=== PATIENT | male | born 1980 | race Caucasian/White ===

== ENCOUNTER → 2018-02-18 09:15 | Outpatient (CLI) | payer OTHER, SELFPAY ==
[2018-02-18 10:36] LABS: Anion Gap 10 (5-15); BUN 9 mg/dL (7-18); BUN/Creat Ratio 9.1 RATIO (10-20); Calcium,Total 8.7 mg/dL (8.5-10.1); Chloride 105 mmol/L (98-107); Cholesterol 186 mg/dL (200); Creatinine, Serum 0.98 mg/dL (0.70-1.30); EST Glomerular Filtration Rate 91 mL/min (>60); Est Glom Filt Rate - Afr Amer 110 mL/min (>60); Glucose 84 mg/dL (74-106); High Density Lipoprotein 55 mg/dL; Potassium 3.7 mmol/L (3.5-5.1); Sodium Level 143 mmol/L (136-145); Triglycerides 118 mg/dL; Very Low Density Lipoprotein 24 mg/dL (5-40)
== END ==
PROVIDERS: Family Provider Family Medicine; PCP Family Medicine; Visit Provider Family Medicine
DX: Z00.00 Encounter for general adult medical examination without abnormal findings (principal)
CPT/HCPCS: 36415; 80048; 80061; 84403

== ENCOUNTER → 2018-03-04 16:53 | Outpatient (CLI) | payer OTHER, SELFPAY ==
[2015-05-15 13:43] VITALS: BMI 27.9
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
== END ==
PROVIDERS: Family Provider Family Medicine; PCP Family Medicine; Referring Provider Family Medicine; Visit Provider Family Medicine
DX: S22.31XA Fracture of one rib, right side, initial encounter for closed fracture (principal); S20.211A Contusion of right front wall of thorax, initial encounter; S20.212A Contusion of left front wall of thorax, initial encounter; W50.0XXA Accidental hit or strike by another person, initial encounter
CPT/HCPCS: 71046; 71100

== ENCOUNTER 2018-06-25 09:41 | Emergency (ER) | payer SELFPAY ==
[2018-06-25 09:42] VITALS: BP 138/82; PULSE 104; RESP 15; TEMP 35.9; BMI 29.5
--- NOTE | 2018-06-25 10:22 | ED.VISSUMM ---
- ER Visit Summary Date of Service: 06/25/18 Chief Complaint: Laceration right ear History of Present Illness: The patient is a 38 M who sustained a right ear laceration with sheet metal last night about 8-1/2 hours ago. Apparently he passed out afterwards. He denies any other injury. Physical Examination: There is a 5 cm laceration with splits the year and 2 on the right ear about shelter between the upper and lower segments of the auricle. Posterior auricular 3 cm laceration is also present. Otherwise normal exam ] Emergency Department Course and Treatment: The anterior part of the auricle was sutured, the posterior segment was loosely approximated and the posterior laceration was also loosely approximated. Tetanus was updated patient will be discharged with suture removal instructions in 5 days. For cosmetic reasons I approximated the [place], because I did this I will placed patient on antibiotics. Discharge stable condition Impression: [Right ear laceration 8 cm] This note was generated with [employer] dictation software. It may contain incorrect words, spelling, and punctuation that were not noted in review of the chart prior to signing ED Disposition - Plan for ED Patient: Disposition: Home or Assisted Living Instructions: ED Laceration All Prescriptions: Clindamycin [Cleocin] 300 mg PO TID #30 cap Referrals: Abel Cruz MD [STAFF PHYSICIAN] - 3-5 Days Additional Instructions: Follow-up with ENT (ear, nose and throat. The cartilage in your ear is not fully approximated, that means it is not fully together. He may need further procedures. If you have any fever chills or EC redness or swelling of the ear return right away. Make sure you take all your antibiotics.
--- NOTE | 2018-06-25 10:27 | ED.DCSUM_ITS ---
- ER Visit Summary Date of Service: 06/25/18 Chief Complaint: Laceration right ear History of Present Illness: The patient is a 38 M who sustained a right ear laceration with sheet metal last night about 8-1/2 hours ago. Apparently he passed out afterwards. He denies any other injury. Physical Examination: There is a 5 cm laceration with splits the year and 2 on the right ear about assisted between the upper and lower segments of the auricle. Posterior auricular 3 cm laceration is also present. Otherwise normal exam ] Emergency Department Course and Treatment: The anterior part of the auricle was sutured, the posterior segment was loosely approximated and the posterior laceration was also loosely approximated. Tetanus was updated patient will be discharged with suture removal instructions in 5 days. For cosmetic reasons I approximated the [place], because I did this I will placed patient on antibiotics. Discharge stable condition Impression: [Right ear laceration 8 cm] This note was generated with [employer] dictation software. It may contain incorrect words, spelling, and punctuation that were not noted in review of the chart prior to signing ED Disposition - Plan for ED Patient: Disposition: Home or Assisted Living Instructions: ED Laceration All Prescriptions: Clindamycin [Cleocin] 300 mg PO TID #30 cap Referrals: Abel Cruz MD [STAFF PHYSICIAN] - 3-5 Days Additional Instructions: Follow-up with ENT (ear, nose and throat. The cartilage in your ear is not fully approximated, that means it is not fully together. He may need further procedures. If you have any fever chills or EC redness or swelling of the ear return right away. Make sure you take all your antibiotics.
[2018-06-25] MEDS: Diphth,Pertuss(Acell),Tet Vac 0.5 ML Vial IM (10:43)
== END 2018-06-25 10:45 | disposition home or self-care (01) ==
PROVIDERS: Emergency Provider Emergency Medicine; Family Provider Family Medicine; PCP Family Medicine
DX: S01.311A Laceration without foreign body of right ear, initial encounter (principal); W26.8XXA Contact with other sharp object(s), not elsewhere classified, initial encounter; Y93.9 Activity, unspecified; Y92.9 Unspecified place or not applicable
CPT/HCPCS: 12015; 90471; 90715; 99282

== ENCOUNTER 2022-11-17 18:50 | Emergency (ER) | payer MEDICAID, SELFPAY ==
[2022-11-17 18:52] VITALS: BP 125/76; PULSE 93; RESP 16; TEMP 36.4; O2SAT 97; BMI 31.6
--- NOTE | 2022-11-17 20:08 | EKG12_ITS ---
Test Reason : COMPLAINT Blood Pressure : / mmHG Vent. Rate : 074 BPM Atrial Rate : 074 BPM P-R Int : 160 ms QRS Dur : 092 ms QT Int : 384 ms P-R-T Axes : 056 081 052 degrees QTc Int : 426 ms Normal sinus rhythm Normal ECG Confirmed by HORTENCIA MADDOX, LASHA ([id number]), editorial assistant GAIL SHAH ([id number]) on 11/23/2022 9:11:26 AM Referred By: Confirmed By:FLORY BURNETT MD
--- NOTE | 2022-11-17 20:09 | EDS_ITS ---
HPI History of Present Illness Chief Complaint: Complaint Detail of Chief Complaint: Bipedal edema. Decreased urination. Informant: patient Onset/Context/Timing Onset: Days Context: Gradual Onset Timing: Continuous Narrative Narrative: 42-year-old male history of lupus for the last 25 years. A year or so ago he had significant kidney damage from his lupus. He has been on Plaquenil he was off it for about a week. He has noticed bipedal edema. Primarily around his ankles. Went to the urgent care they sent him to the ER. He is also had decreased urinary output. Denies vomiting, diarrhea or fever. No shortness of breath. Prior similar symptoms: Yes Recent Illness/Hospitalization: No PFSH PENDING SALE TO [facility] Medical History Dyslipidemia Lupus (systemic lupus erythematosus) Rheumatoid arthritis Home Medications clindamycin HCl 150 mg capsule 300 mg (2 x 150 mg) PO TID #30 caps 06/25/18 [Rx Last Taken Unknown] IVIG 11/17/22 [History Last Taken Unknown] anifrolumab-fnia 300 mg/2 mL (150 mg/mL) intravenous solution (Saphnelo) mg IV .ONCE A MONTH 11/17/22 [History Last Taken Unknown] azathioprine 50 mg tablet mg 11/17/22 [History Last Taken Unknown] folic acid 1 mg tablet 11/17/22 [History Last Taken Unknown] hydroxychloroquine 200 mg tablet mg PO 11/17/22 [History Last Taken Unknown] losartan 25 mg tablet mg 11/17/22 [History Last Taken Unknown] ondansetron HCl 8 mg tablet mg 11/17/22 [History Last Taken Unknown] tadalafil 20 mg tablet mg 11/17/22 [History Last Taken Unknown] Allergy/AdvReac Type Severity Reaction Status Date / Time No Known Allergies Allergy Verified 11/17/22 18:51 Social History Smoking Status: Never smoker ROS ROS ED ROS Narrative Bipedal edema. No recent illness. Review of Systems ROS Unobtainable: Denies due to encephalopathy Constitutional Constitutional ED: Denies fever(s) Eyes Eyes: Denies blurry vision ENT ENT ED: Denies dental pain Cardiovascular Cardiovascular: Denies arrhythmia on telemetry Respiratory/Chest Respiratory/Chest: Denies chest tightness Gastrointestinal Gastrointestinal: Reports diarrhea Genitourinary Genitourinary ED: Reports decreased urination; Denies dysuria Musculoskeletal Musculoskeletal: Denies extremity pain Integumentary Denies change in hair Neurologic Neurologic: Denies frequent falls Psychiatric Psychiatric: Denies hallucinations Endocrine Endocrinology: Denies deepening of the voice Hematologic/Lymphatic Hematologic/Lymphatic: Reports none Allergic/Immunologic Allergic/Immunologic ED: Denies rhinitis or throat swelling EXAM Physical Exam Narrative Exam Narrative: Well-appearing 42-year-old male. Vital signs stable afebrile. Pulse ox 97% room air no hypoxia. No distress. H EENT exam unremarkable. Neck nontender no JVD. Lungs clear to auscultation bilaterally. Heart regular rhythm rate about 90 no murmur. Chest wall nontender. Abdomen soft nontender. Moving all 4 extremities. He does have a mild swelling to his left olecranon bursa. Is nontender. Is not red. Both lower extremities he is bipedal primarily ankle edema. Calves are nontender without cords. Neurologically he is awake and alert with no focal motor deficits. Const Vital Signs: 11/17/22 18:52 Temperature 97.5 F L Temperature Source Temporal Pulse Rate 93 Respiratory Rate 16 Blood Pressure 125/76 H Blood Pressure Mean 92 Pulse Ox 97 Oxygen Delivery Method Room Air Positive well nourished, well developed, alert, oriented x3, no apparent distress, no limitations and healthy appearing; Negative for obese, cachectic, contractures or unkempt General Appearance ED: active, cooperative, comfortable, well kempt and well developed; Negative for unkempt, cachectic or contractures Orientation / Consciousness: awake, oriented to person, oriented to place and oriented to time; Negative for comatose or confused Exam Limitations: no limitations; Negative for altered mental status Nutritional Appearance: Negative for cachectic or obese HEENT Reports normocephalic and head/scalp atraumatic normocephalic and normal to inspection Face and Sinus: normal facial exam Mouth ED: Yes oral and palatal mucosa normal Mouth: oral and palatal mucosa normal Eyes PERRL and EOMs intact bilaterally General Eye ED: Yes normal appearance of both eyes Pupil: PERRL Neck full ROM, No nuchal rigidity, no lymphadenopathy, supple, no meningeal signs and no JVD Lymph Lymphatic: no lymphadenopathy noted Chest Wall inspection of chest normal and palpation of chest normal Resp normal respiratory effort and normal air movement Effort and Inspection: able to speak in complete sentences Auscultation: clear to auscultation bilaterally Cardio regular rate, regular rhythm, S1 normal heart sound, S2 normal heart sound and no murmurs Rate: regular rate Rhythm: regular rhythm GI normal to inspection, nondistended, normoactive bowel sounds, soft to palpation, non-tender, non-distended and no masses Auscultation: normoactive bowel sounds Palpation: soft; Negative for tender or guarding Back/Spine no CVA tenderness, normal ROM and no thoracic nor lumbar tenderness Extremity full ROM; Negative for normal to inspection or no pedal edema Extremity Narrative: Bilateral ankle edema. Calves are nontender. No cords. General Extremety ED: Yes edema General Extremity: edema Neuro oriented x3, CN's II-XII intact bilaterally, moves all extremities and no focal motor deficits Sensorium / Orientation: awake, alert, oriented to person, oriented to place and oriented to time Motor Exam: strength 5/5 throughout Psych mental status grossly normal, thought process normal, cooperative and affect normal Appearance: Negative for unkempt Attitude: calm and engaged Activity / Motor Behavior: appropriate eye contact Speech: normal speech Thought Process: normal thought process Thought Content: normal thought content Skin no rashes or lesions noted and no wounds General Skin Exam: no breakdown Lesions: no lesions Rashes: no rashes Trauma: no lacerations or abrasions Hair: normal MDM MDM MDM Narrative Medical decision making narrative: 42-year-old male with bilateral ankle edema. History of lupus and prior kidney damage and disease due to his lupus. Screening labs to be obtained. Chest x- ray and EKG. Repeat exam patient is doing well at 9:50 PM. We went over all his test results. His repeat exam is unchanged. He will be discharged home with outpatient follow-up. Currently his kidney function looks good. Lab Data Attestation: I reviewed the patient's lab results. Lab results narrative: CBC shows a white count of 4.2. H&H 14 and 44. Platelets 252. Electrolytes show a gap of 5 BUN and creatinine are normal at 10 and 1. Glucose 138. Chest x-ray unremarkable. EKG unremarkable. Labs: Laboratory Results - last 24 hr 11/17/22 20:15 WBC 4.2 L RBC 4.56 L Hgb 14.5 Hct 44.4 MCV 97.4 H MCH 31.8 MCHC 32.7 RDW Std Deviation 43.3 RDW Coeff of Zeferino 12.0 Plt Count 252 MPV 9.6 Immature Gran % (Auto) 0.200 Neut % (Auto) 65.9 Lymph % (Auto) 18.5 L [place] % (Auto) 10.9 H Eos % (Auto) 3.1 Baso % (Auto) 1.4 H Absolute Neuts (auto) 2.8 Absolute Lymphs (auto) 0.78 L Nucleated RBC % 0 Sodium 138 Potassium 3.9 Chloride 106 Carbon Dioxide 27.0 Anion Gap 5 BUN 10 Creatinine 1.01 Estim Creat Clear Calc 104.58 Est GFR (MDRD) Af Amer 104 Est GFR (MDRD) Non-Af 86 BUN/Creatinine Ratio 9.9 L Glucose 138 H Calcium 9.1 Radiography Chest X-Ray - ED: 1 View, Read by ED Physician, Read by Radiologist, Mediastinum, Bony Structures and No Acute Disease Diagnostic Testing: Clinical Impression(s) from Imaging Studies Chest X-Ray 11/17/22 20:10 IMPRESSION: Normal x-ray examination of the chest. Electronically Signed: García Tineo MD at 21:29 EDT , Chest x-ray, portable, single view shows no acute abnormality. Interpreted both by myself and the radiologist. We agree. Normal cardiac silhouette. No effusions. No pulmonary edema. No infiltrates. Rhythm Strip Rhythm Strip: Sinus Rhythm Rate: 74 Ectopy: None EKG Initial EKG: Attestation: I personally reviewed and interpreted this EKG as follows: Interpretation: Sinus Rhythm and No Acute Injury Pattern Comments: Normal sinus rhythm rate of 74 no acute signs of MT nor ischemia nor dysrhythmia. Prior EKG tracings: not available for review Discharge Plan Triage Chief Complaint: Complaint Other Complaint: Edema Lower Extremity Injury Upper Extremity Injury ED Provider: Woo Morales Dx/Rx/DC Orders Clinical Impression: History of lupus nephritis, Edema, peripheral, History of lupus Prescriptions: No Action clindamycin HCl 150 MG capsule 300 mg PO TID Qty: 30 0RF ondansetron HCl 8 mg tablet Patient Comments: TAKE 1 TABLET BY MOUTH EVERY 12 HOURS NEEDED FOR NAUSEA AND VOMITING azathioprine 50 mg tablet Patient Comments: TAKE 3 TABLETS BY MOUTH ONCE DAILY losartan 25 mg tablet Patient Comments: TAKE 1 TABLET BY MOUTH TWICE DAILY folic acid 1 mg tablet Patient Comments: TAKE 1 TABLET BY MOUTH ONCE DAILY hydroxychloroquine 200 mg tablet PO Patient Comments: TAKE 2 TABLETS BY MOUTH EVERY DAY tadalafil 20 mg tablet Patient Comments: TAKE 1 TABLET BY MOUTH NEEDED 2 HOURS PRIOR TO SEXUAL INTERCOURSE. DO NOT USE WITHIN 48 HOURS OF MIX INJECTION. Saphnelo 300 mg/2 mL (150 mg/mL) solution IV .ONCE A MONTH IVIG Primary Care Provider: Care Physician,No Primary Referrals: Care Physician,No Primary [Primary Care Provider] - Activity Restrictions/Additional Instructions: Make sure you follow-up with your [facility] doctors. This should progressively improve. Your labs, x-ray and EKG were all unremarkable. Your kidney function tonight is normal with a creatinine of 1. Nothing bad I can find tonight causing this. Follow-up if not improving or getting worse. Disposition Disposition: Home, Self Care
--- NOTE | 2022-11-17 20:10 | RAD_ITS ---
STUDY: X-RAY CHEST REASON FOR EXAM: Male, 42 years old. pedal edema TECHNIQUE: Single AP portable view of the chest. COMPARISON: None. FINDINGS: The lungs are clear and expanded. There is no demonstrated pleural abnormality. Normal size heart. Normal mediastinum and mariano. Normal visualized pulmonary arteries. Normal visualized aortic arch and descending thoracic aorta. Normal visualized thoracic spine. Normal visualized ribs, clavicles, and shoulders. There is no demonstrated abnormality of the visualized soft tissue structures of the upper abdomen. RAD/Chest 1 View (Portable) IMPRESSION: Normal x-ray examination of the chest. Electronically Signed: García Tineo MD at 21:29 EDT ,
[2022-11-17 20:19] LABS: Absolute Lymphocyte Count 0.78 X10^3/uL (0.83-4.51); Absolute Neutrophil Count 2.8 X10^3/uL (2.0-7.7); Basophil# 0.06 X10^3/uL; Basophil% 1.4 % (0-1); Eosinophil# 0.13 X10^3/uL; Eosinophils% 3.1 % (0-5); Hematocrit 44.4 % (40-54); Hemoglobin 14.5 g/dL (13.0-16.5); Lymphocyte # 0.78 X10^3/ul (0.83-4.51); Lymphocyte % 18.5 % (19-41); Mean Corp Hgb Conc 32.7 g/dL (32-36); Mean Corpuscular Hgb 31.8 pg (27.0-32.0); Mean Corpuscular Volume 97.4 fL (80-94); Mean Platelet Vol. 9.6 fl (6.2-12.0); Monocyte# 0.46 X10^3/uL; Monocyte% 10.9 % (0-10); NRBC Flagged by Analyzer 0 % (0-5); Neutrophil # 2.78 X10^3/uL (2.7-7.7); Neutrophil % 65.9 % (47-70); Platelet Count 252 K/mm3 (150-450); RBC Distribution Width SD 43.3 fl (35.1-43.9); Red Blood Count 4.56 M/mm3 (4.6-6.2); White Blood Count 4.2 K/mm3 (4.4-11.0)
[2022-11-17 20:32] LABS: Anion Gap 5 (5-15); BUN 10 mg/dL (7-18); BUN/Creat Ratio 9.9 RATIO (10-20); Calcium,Total 9.1 mg/dL (8.5-10.1); Chloride 106 mmol/L (98-107); Creatinine, Serum 1.01 mg/dL (0.70-1.30); EST Glomerular Filtration Rate 86 mL/min (>60); Est Glom Filt Rate - Afr Amer 104 mL/min (>60); Estimated Creatinine Clearance 104.58 ml/min; Glucose 138 mg/dL (74-106); Potassium 3.9 mmol/L (3.5-5.1); Sodium Level 138 mmol/L (136-145)
[2022-11-17 22:00] VITALS: BP 138/76; PULSE 70; RESP 16
== END 2022-11-17 22:00 | disposition home or self-care (01) ==
PROVIDERS: Emergency Provider Emergency Medicine; Visit Provider Emergency Medicine
DX: M32.14 Glomerular disease in systemic lupus erythematosus (principal); Z79.899 Other long term (current) drug therapy
CPT/HCPCS: 71045; 80048; 85025; 93005; 99285; A4216